=== PATIENT | female | born 1960 | race Caucasian/White ===

== ENCOUNTER → 2019-12-16 | Outpatient (REF) | payer OTHER ==
[2019-12-18 17:07] LABS: Lyme Disease IgG/IgM Antibodie <0.91 ISR (0.00-0.90); Lyme Disease IgM Ab Quantitati <0.80 index (0.00-0.79)
== END ==
LOC: M LAB REF 22:54
PROVIDERS: ATTEND Physician Assistant
DX: Z11.59 Encounter for screening for other viral diseases (principal); W57.XXXA Bitten or stung by nonvenomous insect and other nonvenomous arthropods, initial encounter

== ENCOUNTER → 2023-03-01 | Outpatient (CLI) | payer OTHER | LOC: M WHC 14:40 | PROVIDERS: ATTEND Obstetrics & Gynecology | DX: M85.9 Disorder of bone density and structure, unspecified (principal) ==

== ENCOUNTER → 2024-12-10 | Outpatient (CLI) | payer OTHER | LOC: M RAD 13:59 | PROVIDERS: ATTEND Physician Assistant | DX: M25.551 Pain in right hip (principal); Z96.641 Presence of right artificial hip joint; Z47.1 Aftercare following joint replacement surgery ==

== ENCOUNTER → 2025-04-09 | Outpatient (CLI) | payer MEDICARE, OTHER | LOC: M WHC 14:45 | PROVIDERS: ATTEND Obstetrics & Gynecology | DX: M81.0 Age-related osteoporosis without current pathological fracture (principal) ==